=== PATIENT | female | born 2000 | race African-American/Black ===

== ENCOUNTER 2024-01-11 21:02 | Observation (INO) | payer OTHER, SELFPAY ==
[2024-01-11] VITALS (12 sets, daily range): BP systolic 134; BP diastolic 78; PULSE 87–103; TEMP 36.8; O2SAT 98–100; BMI 38.8
[2024-01-11 22:44] LABS: Appearance Urine Cloudy (Clear); Bacteria Urine 3+ /hpf; Bilirubin Urine Negative (Negative); Blood Urine Negative (Negative); Color Urine Dark Yellow (Yellow); Glucose Urine UA Negative (Negative); Ketones Urine 2+ mg/dL (Negative); Leukocyte Esterase Ur Negative LEU/UL (Negative); Nitrate Urine Negative (Negative); Non Pathogenic Casts 0-2; Protein Urine 1+ mg/dL (Negative); RBC Urine 0-2 /hpf (0-2); Squamous Epithelial Cell Urine Moderate /hpf (Few); WBC Urine 0-5 /hpf (0-3)
[2024-01-11 23:02] LABS: Add Urine Microscopic? YES; Specific Grav Ur 1.032 (1.001-1.035)
--- NOTE | 2024-02-10 21:01 | P.PNOB_ITS ---
OB - Triage/Final Diagnosis Visit Information Comments/Additional reasons for admission: I have assessed the risk for this patient, Dory Goddard, and determined that she would benefit from observation care. Evaluation Laboratory results: Laboratory Tests 01/11/24 22:35 Urine Color Dark yellow Urine Appearance Cloudy H Urine pH 6.0 Ur Specific [place] 1.032 Urine Protein 1+ H Urine Glucose (UA) Negative Urine Ketones 2+ H Ur Blood (Man) Negative Urine Nitrate Negative Urine Bilirubin Negative Urine Urobilinogen 1.0 Leukocyte Esterase Rfl Negative Urine RBC 0-2 Urine WBC 0-5 Ur Squamous Epith Cells Moderate Urine Bacteria 3+ H Urine Casts 0-2 Final Diagnosis (1) Abdominal pain: Code(s): R10.9 - Unspecified abdominal pain Status: Acute
== END 2024-01-11 23:20 | disposition home or self-care (01) ==
LOC: ANHED 21:28 → ANHOBPP 21:29 → ANHED 21:30 → ANHOBPP 21:30
PROVIDERS: Admitting Provider Obstetrics & Gynecology; Emergency Provider Advanced Practice Midwife; Visit Provider Obstetrics & Gynecology
DX: O26.899 Other specified pregnancy related conditions, unspecified trimester (principal); R10.30 Lower abdominal pain, unspecified
CPT/HCPCS: 81001; G0378; G0379

== ENCOUNTER 2024-01-31 19:40 | Observation (INO) | payer OTHER, SELFPAY ==
[2024-01-31 19:57] VITALS: BP 151/105; PULSE 135
[2024-01-31 20:00] VITALS: BP 143/118; PULSE 158
[2024-01-31 20:29] VITALS: BP 109/61; PULSE 98
[2024-01-31 20:31] VITALS: BP 80/24; PULSE 163
[2024-01-31 20:33] VITALS: BMI 41.4
--- NOTE | 2024-01-31 20:37 | OBADM ---
This patient, Dory Goddard, admitted to the OB room OB Post 116 for observation. Patient/family oriented to hospital policies and general routines including ID bracelet, bed and alarms, visiting hours, pain management, procedures, bathroom and other care routines, personal items, smoking policy, room service/diet, and visiting hours. Patient/Family are encouraged to report perceived risks to care and to ask questions if they do not understand what they are told or what they should do.
[2024-01-31 21:00] VITALS: BP 119/53; PULSE 89
[2024-01-31 21:00] LABS: Bacteria Urine Rare /hpf; Non Pathogenic Casts 0-2; RBC Urine 0-2 /hpf (0-2); Squamous Epithelial Cell Urine Occasional /hpf (Few); WBC Urine 0-5 /hpf (0-3)
[2024-01-31 21:11] LABS: Add Urine Microscopic? YES; Appearance Urine Clear (Clear); Bilirubin Urine Negative (Negative); Blood Urine Negative (Negative); Color Urine Yellow (Yellow); Glucose Urine UA Negative (Negative); Ketones Urine 3+ mg/dL (Negative); Leukocyte Esterase Ur Negative LEU/UL (Negative); Nitrate Urine Negative (Negative); Protein Urine Trace mg/dL (Negative); Specific Grav Ur 1.027 (1.001-1.035); pH Urine 6.5 (5.0-9.0)
--- NOTE | 2024-01-31 21:19 | PC.NURSE ---
2118: Dr. Baig called and given report on pt, FHT and urine results. Report given that pt has not had a BM in [address] Baig gave orders for PO hydration, 500 mg of tylenol and to instruct the patient to take Milk of Magnesia 2-3x/day. She may be discharged home.
--- NOTE | 2024-03-02 21:15 | PM.OBTRLD ---
OB - Triage/Final Diagnosis Visit Information Comments/Additional reasons for admission: I have assessed the risk for this patient, Dory oGddard, and determined that she would benefit from observation care. Evaluation Laboratory results: Laboratory Tests 01/31/24 20:43 Urine Color Yellow Urine Appearance Clear Urine pH 6.5 Ur Specific [place] 1.027 Urine Protein Trace Urine Glucose (UA) Negative Urine Ketones 3+ H Ur Blood (Man) Negative Urine Nitrate Negative Urine Bilirubin Negative Urine Urobilinogen 1.0 Leukocyte Esterase Rfl Negative Urine RBC 0-2 Urine WBC 0-5 Ur Squamous Epith Cells Occasional Urine Bacteria Rare Urine Casts 0-2 Final Diagnosis (1) Constipation: Code(s): K59.00 - Constipation, unspecified Status: Acute
== END 2024-01-31 22:08 ==
PROVIDERS: Admitting Provider Obstetrics & Gynecology; Visit Provider Obstetrics & Gynecology
DX: O26.899 Other specified pregnancy related conditions, unspecified trimester (principal); R10.9 Unspecified abdominal pain; K59.00 Constipation, unspecified
CPT/HCPCS: 81001; G0378; G0379

== ENCOUNTER 2024-04-23 15:33 | Outpatient (RCR) | payer OTHER, SELFPAY ==
--- NOTE | ~2024-04-23 | US_ITS ---
EXAMINATION: US OB limited w BPP DATE: 04/23/2024 17:22 INDICATION: Nonreactive nonstress test. Third trimester. TECHNIQUE: Real-time pelvic ultrasound was performed. COMPARISON: None. FINDINGS: There is a single living fetus in vertex presentation. The placenta is posterior. heart rate i s 141 beats per minute (bpm). The cervical length is 2.7 cm on transabdominal images, which is normal . The amniotic fluid index is 9.1 cm which is normal. Biophysical profile performed by the technologist: breathing (30 sec sustained breathing in 30 minutes): 2 out of 2 movement (3 gross body movements in 30 minutes): 2 out of 2 tone (one episode of eodttiy-frdyeafxi-wrikyhq limb movement): 2 out of 2 Amniotic fluid pocket (2 cm): 2 out of 2 Total score: 8 out of 8 IMPRESSION: 1. Single living fetus in vertex presentation. 2. Biophysical profile 8 out of 8. Reviewed, dictated and finalized at location A.
[2024-04-23 16:21] VITALS: BP 128/76; PULSE 85
--- NOTE | 2024-04-23 17:24 | PC.NURSE ---
Nicole Urbina CNM notified of NST and ultrasound results
== END 2024-05-26 09:52 | disposition home or self-care (01) ==
LOC: ANHOBOP 15:33
PROVIDERS: Visit Provider Advanced Practice Midwife
DX: O26.893 Other specified pregnancy related conditions, third trimester (principal)
CPT/HCPCS: 59025; 76815; 76819

== ENCOUNTER 2024-04-30 15:00 | Inpatient (IN) | payer OTHER, SELFPAY ==
[2024-04-30] VITALS (71 sets, daily range): BP systolic 68–136; BP diastolic 22–98; PULSE 50–183; TEMP 36.2–36.5; O2SAT 62–100; BMI 41.5
[2024-04-30 15:55] LABS: Basophils Percent Auto 0.3 % (0.2-1.2); Eosinophils Absolute Auto 0.1 K/mm3 (0-0.3); Eosinophils Percent Auto 0.7 % (0-4.4); Hematocrit 35.5 % (37.0-47.0); Hemoglobin 11.4 g/dL (12.0-15.0); Immature Granulocyte Absolute 0.03 K/mm3 (0.00-0.031); Immature Granulocyte Percent A 0.3 % (0-0.5); Lymphocytes Absolute Auto 1.08 K/mm3 (0.9-3.2); Lymphocytes Percent Auto 11.8 % (18.3-44.2); Mean Corpuscular HGB Conc 32.1 g/dl (32-36); Mean Corpuscular Hemoglobin 26.2 pg (26-34); Mean Corpuscular Volume 81.6 fl (80-100); Mean Platelet Volume 10.5 fl (7.4-10.4); Monocytes Absolute Auto 0.9 K/mm3 (0.1-0.6); Monocytes Percent Auto 9.7 % (2.6-8.5); Neutrophils Absolute Auto 7.1 K/mm3 (1.3-6.7); Neutrophils Percent Auto 77.2 % (45.5-73.1); Platelet Count Result 309 k/mm3 (150-375); Red Blood Count 4.35 M/mm3 (4.2-5.4); Red Cell Distribution Width 14.5 % (11.5-14.5); White Blood Count 9.2 K/mm3 (4.5-10.0)
--- NOTE | 2024-04-30 16:02 | LDADM ---
This patient, Dory Goddard, was admitted to Labor/Delivery/Recovery 108 on 04/30/24 at 15:00. Plans for labor, pain management and were discussed with patient. Patient/family oriented to hospital policies and general routines including ID bracelet, bed and alarms, visiting hours, pain management, procedures, bathroom and other care routines, personal items, smoking policy, room service/diet and guest tray routines, infant security routines, and visiting hours. Patient/Family are encouraged to report perceived risks to care and to ask questions if they do not understand what they are told or what they should do. See OBIX for further documentation.
--- NOTE | 2024-04-30 16:15 | WPDANESEPP ---
Anes - Eval Pre Procedure Procedure: Labor epidural Date/Time: 04/30/24 16:15 Surgeon: Jovanni Preop Diagnosis: Pain during labor Pre Op Diagnosis: labor Patient Data Age: 23 Gender: F Height: 1.8 m Weight: 135 kg Last Vital Signs Pulse 76 04/30/24 16:03 BP 103/66 04/30/24 16:03 O2 Del Method Room Air 04/30/24 16:01 Allergies Allergy/AdvReac Type Severity Reaction Status Date / Time No Known Allergies Allergy Verified 04/23/24 13:04 Home Medications Medication Instructions Recorded Confirmed Type prenat.vits,isabella,rav-ydsz-rqlyy 1 tablet PO DAILY 04/24/24 04/30/24 History Laboratory Tests 04/30/24 15:47 WBC 9.2 K/mm3 (4.5-10.0) RBC 4.35 M/mm3 (4.2-5.4) Hgb 11.4 L g/dL (12.0-15.0) Hct 35.5 L % (37.0-47.0) MCV 81.6 fl (80-100) MCH 26.2 pg (26-34) MCHC 32.1 g/dl (32-36) RDW 14.5 % (11.5-14.5) Plt Count 309 k/mm3 (150-375) MPV 10.5 H fl (7.4-10.4) Immature Gran % (Auto) 0.3 % (0-0.5) Neut % (Auto) 77.2 H % (45.5-73.1) Lymph % (Auto) 11.8 L % (18.3-44.2) [place] % (Auto) 9.7 H % (2.6-8.5) Eos % (Auto) 0.7 % (0-4.4) Baso % (Auto) 0.3 % (0.2-1.2) Lymph # (Auto) 1.08 K/mm3 (0.9-3.2) [place] # (Auto) 0.9 H K/mm3 (0.1-0.6) Eos # (Auto) 0.1 K/mm3 (0-0.3) Baso # (Auto) 0.0 K/mm3 (0.0-0.1) Abs Immat Gran (auto) 0.03 K/mm3 (0.00-0.031) Absolute Neuts (auto) 7.1 H K/mm3 (1.3-6.7) Absolute Nucleated RBC 0.000 K/mm3 (0.0-0.012) Nucleated RBC % 0.0 % (0.0-0.2) RPR Pending HIV 1&2 Ab/P24 Ag 4thGn Pending Blood Type A Positive Antibody Screen Pending Patient hx anesthesia problems: none Family hx anesthesia problems: none Results Review: All pre-operative results and documents have been reviewed as part of the pre-operative evaluation. [facility] Social History Social History Smoking status: Former smoker Second hand tobacco smoke exposure: Yes Substance use: never Do You Feel Safe in your Home?: Yes Lack of Transportation: No Lack of Food: Never True Current Housing: I Have Housing Concerned About Future Housing: No Difficulty Paying Gas/Electric Bills: No Difficulty Paying for Meds: No Currently Unemployed: No Education: Don't Know Difficulty w/ Childcare or Family Care: No Spiritual care concerns: No Exam Day of Procedure 04/30/24 16:15 Patient weight: obese Heart: regular rate and rhythm Lungs: clear to auscultation Airway: Mallampati scale class II Neurological: alert and oriented
[2024-04-30] MEDS: AMPICILLIN 2 GM/NS 100 ML 2 GM/100 ML BAG IVPB (16:21)
[2024-04-30] MEDS: OXYTOCIN 30 UNITS/NS 500 ML 30 UNITS/500 ML BAG IV CONT (16:21)
[2024-04-30] MEDS: LACTATED RINGERS 1,000 ML 125 ML IV CONT ×2 (16:21→22:50)
[2024-04-30 16:48] LABS: HIV 1/2 Ab P24 Ag Result Negative (Negative)
[2024-04-30 17:01] LABS: Rapid Plasma Reagin Non-Reactive (NonReactive)
--- NOTE | 2024-04-30 18:29 | WPDOBADMIT ---
Obstetrics - Admit Note Admission Note: record reviewed. No pertinent additions to the history and/or any subsequent changes in the physical findings that are not consistent with the expected course of the were found. Additions to the history and/or subsequent changes in the physical findings follow. Admit for SROM, augment with pitocin, IUPC placed, anticipate vaginal delivery
[2024-04-30] MEDS: AMPICILLIN 1 GM/NS 50 ML 1 GM/50 ML BAG IVPB (20:24)
[2024-04-30] MEDS: ONDANSETRON INJ 4 MG/2 ML VIAL IV PUSH (22:13)
[2024-05-01] VITALS (118 sets, daily range): BP systolic 80–165; BP diastolic 31–141; PULSE 25–204; RESP 16–20; TEMP 36.4–37.6; O2SAT 20–100
[2024-05-01] MEDS: LACTATED RINGERS 1,000 ML 125 ML IV CONT ×2 (00:30→09:35)
[2024-05-01] MEDS: AMPICILLIN 1 GM/NS 50 ML 1 GM/50 ML BAG IVPB ×4 (00:30→13:07)
--- NOTE | 2024-05-01 12:10 | PM.OBPNLAB ---
Pain Control Date/time seen: 05/01/24 12:10 Comments: SVE 9.5cm/90/+1, category 1 contractions Q 2
[2024-05-01] MEDS: fentaNYL CITRATE INJ (*CRX) 100 MCG/2 ML VIAL 50 MCG IV PUSH (14:10)
--- NOTE | 2024-05-01 14:15 | PM.OBPRVD ---
OB - Vaginal Delivery Note Procedure Delivery date: 05/01/24 Events: Other (dermoid cyst) Induction method: None Delivery augmentation: Pitocin Delivery monitor: External FHT and Internal Uterine Route of delivery: Episiotomy description: None Laceration Description: None Specimen: No Quantitative Blood Loss (ml): 400 Anesthesia type: Epidural Disposition: Floor Complications: No immediate complications Baby Date of : 05/01/24 Time of : 14:01 Gestational Age by Date: 39 gender: Male Weight (pounds): 7 Weight (ounces): 3 presentation: vertex position: Left Occiput Anterior Placenta delivery description: Spontaneous Cord Vessel Description: 3 Vessels, Nuchal Cord (x2), Reduced and Clamped/Cut score one minute: 9 score five minutes: 9 Narrative: mother and baby in stable condition
[2024-05-01] MEDS: OXYTOCIN 30 UNITS/NS 500 ML 30 UNITS/500 ML BAG 125 UNITS IV CONT (14:27)
[2024-05-01] MEDS: WITCH HAZEL 40 PADS 1 PAD TOPICAL (16:32)
[2024-05-01] MEDS: BENZOCAINE 20% AER SPR (*SP) 56 GM CAN 1 SPRAY TOPICAL (16:32)
--- NOTE | 2024-05-01 16:52 | OBPPTRN ---
Patient transferred to post room #291 via wheelchair. Support person present. Oriented to unit, room, information board, rooming in, admission packet and security measures. Patient verbalizes understanding.
[2024-05-01] MEDS: IBUPROFEN 600 MG TABLET PO (18:25)
[2024-05-02 03:34] LABS: Hematocrit 29.6 % (37.0-47.0); Hemoglobin 9.3 g/dL (12.0-15.0)
[2024-05-02 07:50] VITALS: BP 116/68; PULSE 81; RESP 16; TEMP 36.8; O2SAT 100
--- NOTE | 2024-05-02 08:05 | PM.OBPNVD ---
OB - PN: Subj Subjective Date/time seen: 05/02/24 08:05 Interval history: pp day 1 doing well some leg pain OB - PN: Obj Data Labs 05/02/24 03:23 Labs: Laboratory Results - last 24 hr 05/02/24 03:23 Hgb 9.3 L Hct 29.6 L OB - PN A/P Plan day: 1 Plan: routine care Time Spent With Patient Time: Total time spent is greater than 50% in coordination of care (as documented) at patient's floor/unit and/or counseling patient: Review of Systems Review of Systems: All systems reviewed & are unremarkable except as noted in HPI and below Exam Const: General: cooperative and healthy appearing Resp: Effort & Inspection: normal respiratory effort Cardio: Rate: regular rate GI: Other: soft Neuro: General: patient oriented x3 Extrem: General: normal to inspection Psych: Appearance: grossly normal
[2024-05-02] MEDS: CYCLOBENZAPRINE HCL 5 MG TABLET PO ×2 (08:37→22:00)
[2024-05-02] MEDS: POLYSACCHARIDE IRON COMPLEX 150 MG CAPSULE PO ×2 (08:37→17:40)
[2024-05-02] MEDS: DOCUSATE SODIUM 100 MG CAPSULE PO ×2 (08:37→17:40)
--- NOTE | 2024-05-02 10:52 | WPDANLDPN2 ---
Anes-Prog Note L&D Date/Time: 05/02/24 10:52 Comfortable throughout: labor and delivery Neuraxial method: epidural Epidural/Spinal procedure site: clean & non-tender Neuro status: Neuro function grossly intact. Cardiovascular status: normal Respiratory status: normal Airway patency: baseline Mental status: baseline Post-Op hydration status: normal Vital Signs: Last Vital Signs Temp 36.8 C 05/02/24 07:50 Pulse 81 05/02/24 07:50 Resp 16 05/02/24 07:50 BP 116/68 05/02/24 07:50 Pulse Ox 100 05/02/24 07:50 O2 Del Method Room Air 05/01/24 19:49 Pain score (VAS): 2/10 I/O: Intake & Output 05/01/24 05/02/24 05/02/24 23:59 07:59 15:59 Output Total 100 Balance -100 Post-procedural complaints: none Patient feedback: Patient satisfied with anesthetic care.
[2024-05-02 12:51] VITALS: BP 118/68; PULSE 97; RESP 18; TEMP 36.8; O2SAT 100
[2024-05-02 19:37] VITALS: BP 131/52; PULSE 102; RESP 20; TEMP 36.8; O2SAT 98
[2024-05-03] MEDS: CYCLOBENZAPRINE HCL 5 MG TABLET PO (05:00)
--- NOTE | 2024-05-03 07:11 | PM.OBPNVD ---
OB - PN: Subj Subjective Date/time seen: 05/03/24 07:11 Interval history: pp day 2 doing well desires d/c home OB - PN: Obj Data Labs 05/02/24 03:23 OB - PN A/P Plan day: 2 Plan: routine care and discharge home Time Spent With Patient Time: Total time spent is greater than 50% in coordination of care (as documented) at patient's floor/unit and/or counseling patient: Review of Systems Review of Systems: All systems reviewed & are unremarkable except as noted in HPI and below Exam Const: General: cooperative and healthy appearing Chest: Chest palpation & inspection: normal inspection of the chest Cardio: Rate: regular rate
[2024-05-03] MEDS: POLYSACCHARIDE IRON COMPLEX 150 MG CAPSULE PO (07:12)
[2024-05-03] MEDS: DOCUSATE SODIUM 100 MG CAPSULE PO (07:12)
--- NOTE | 2024-05-03 07:12 | P.DS_ITS ---
DS: Admitting Diagnosis Discharge Date 05/03/24 Admitting Diagnosis SROM DS: Discharge Diagnosis Discharge Diagnosis (1) Vaginal delivery: Code(s): O80 - Encounter for full-term uncomplicated delivery Status: Acute OB - DS: Summary OB Procedures : None OB Procedures Intrapartum: Spontaneous Vag Delivery OB Procedures: : None Peripartum Data Laceration Description: None Episiotomy description: None Time Spent with Patient Time attestation: Total time spent providing and/or coordinating discharge services: Discharge Plan Discharge Attending physician on discharge: Amari Baig Discharging Clinician: Loan Urbina Patient Disposition: Home, Self-Care Activity: pelvic rest Diet: regular Patient Instructions: Antibiotic Form Stand Alone Forms: General Discharge Information Follow-up/Referrals: Loan Urbina CNM [Certified Nurse Facilities Coordinator] - 4 Weeks Discharge Medications: Continued #2 Tablet 1 tablet PO DAILY Date of admission: 04/30/24 15:00 Primary Care Provider: PHYSICIAN,AUTOMOBILE BODY REPAIR CHIEF Admitting Provider: Amari Baig Attending physician on admission: Amari Baig Condition: Stable
[2024-05-03 07:15] VITALS: BP 98/53; PULSE 65; RESP 16; TEMP 36.6; O2SAT 100
[2024-05-05 10:48] VITALS: BP 115/67; PULSE 72; RESP 20; TEMP 36.4; O2SAT 100
== END 2024-05-03 11:05 | disposition home or self-care (01) | DRG 560 ==
LOC: ANHLDR 15:29 → ANHOB2 05-01 17:08
PROVIDERS: Advanced Practice Midwife; Admitting Provider Obstetrics & Gynecology; Visit Provider Obstetrics & Gynecology
DX: O99.824 Streptococcus B carrier state complicating childbirth (principal); O69.81X0 Labor and delivery complicated by cord around neck, without compression, not applicable or unspecified; Z3A.39 39 weeks gestation of pregnancy; Z37.0 Single live birth
CPT/HCPCS: 36415; 85014; 85018; 85025; 86592; 86703; 86850; 86900; 86901; A9270; G0432; J0290; J2405; J2590; J2795; J3010; J7120

== ENCOUNTER 2025-02-24 07:37 | Emergency (ER) | payer OTHER, SELFPAY ==
[2025-02-24 07:40] VITALS: BP 151/79; PULSE 104; RESP 18; TEMP 36.4; O2SAT 100
--- OUTSIDE RECORDS SUMMARY | 2025-02-24 07:40 | XMS_ITS | Clinical Summary ---
Author Organization [facility] Address [address] [place] [address] Care Team Providers Care Forest Pathology Associate Professor Name Role Phone No, Physician Primary Care Provider [phone] Allergies No known active allergies Medications ondansetron ODT (ZOFRAN-ODT) 4 mg disintegrating tablet Take 1 tablet (4 mg total) by mouth every 8 (eight) hours as needed for nausea or vomiting 20 tablet 4 Active pyridoxine (VITAMIN B6) 25 mg tabletIndications:N ausea Gravidarum Take 2 tablets (50 mg total) by mouth 3 (three) times a day as needed (Nausea and vomiting) for up to 30 doses 30 tablet 4 Active doxylamine (UNISOM) 25 mg tabletIndications:N ausea Gravidarum Take 1 tablet (25 mg total) by mouth 3 (three) times a day as needed for nausea for up to 30 doses 30 tablet 4 Active Social History Tobacco Use Types Packs/Day Years Used Date Smoking Tobacco: Never Assessed Personal Safety Answer Date Recorded Have you ever been in or are you currently in a harmful physical or emotional relationship or is someone making you feel afraid or unsafe? 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 Gender Identity Not on file Sexual Orientation Not on file Obstetrics History Para Term AB IAB SAB Ectopic Multiple Livin g Live Births 1 Date Outcome GA Total Labor Labor/2nd/3rd Weight Sex Type Anes PTL Jeny A1 A5 Name Clin Last Filed Vital Signs Vital Sign Reading Time Taken Comments Blood Pressure 138/75 09/18/2023 8:00 PM STRAP MACHINE OPERATOR Pulse 80 09/18/2023 8:00 PM STRAP MACHINE OPERATOR Temperature 36.8 C (98.2 F) 09/18/2023 4:38 PM STRAP MACHINE OPERATOR Respiratory Rate 17 09/18/2023 4:38 PM STRAP MACHINE OPERATOR Oxygen Saturation 98% 09/18/2023 8:00 PM STRAP MACHINE OPERATOR Inhaled Oxygen Concentration - - Weight 127 kg (280 lb) 09/18/2023 12:49 PM STRAP MACHINE OPERATOR Height 182.9 cm (6') 09/18/2023 12:49 PM STRAP MACHINE OPERATOR Body Mass Index 37.97 09/18/2023 12:49 PM STRAP MACHINE OPERATOR Plan of Treatment Health Maintenance Due Date Last Done Comments Cervical Cancer Screening 1999 Depression Screening 1999 Hepatitis C Screening 1999 Regular Well Visit/Exam 18-64 2017 DTaP/Tdap/Td Vaccine (7 - Td or Tdap) 03/09/2021 03/09/2011, 03/15/2004, 09/28/2000, Additional history exists Influenza Vaccine (#1) 2025 05/03/2017 Hepatitis B Screening Completed 01/02/2000 , 1999, 1999 Varicella Vaccines Completed 11/07/2007, 07/02/2000 HPV Vaccines Completed 08/28/2013, 03/09/2011 Pneumococcal vaccine <65 Aged Out 08/28/2013, 06/22 No longer eligible based on patient's age to complete this topic Insurance [facility] Care Teams Forest Pathology Associate Professor Relationship Specialty Start Date End Date No, Physician PCP - General 09/18/23
--- OUTSIDE RECORDS SUMMARY | 2025-02-24 07:40 | XMS_ITS | Clinical Summary ---
Author Organization [facility] Address [address] [place] [address] Care Team Providers Care Service Engine Repairer Name Role Phone Unavailable Primary Care Provider Unavailabl e Source Comments [facility],non-owned Affiliates and Associated Physician Practices is amultiple site organization consisting of ambulatory clinics and hospital sitesin [place], [place], [place] and [place]. This disclosure is being madepursuant to the Care Everywhere program and may not contain all information available regarding this patient. Last updated 18.[facility] Allergies No known active allergies Medications * Be aware that medications may not be up to date on this document. Alwaysverify current medications with the patient. Vit-DSS-Fe Fum-FA ( vitamin with iron) tablet Take 1 (one) tablet by mouth once daily Active Social History Tobacco Use Types Packs/Day Years Used Date Smoking Tobacco: Never Smokeless Tobacco: Never Alcohol Use Standard Drinks/Week Comments Not Currently 0 (1 standard drink = 0.6 oz pur e alcohol) Comments No Sex and Gender Information Value Date Recorded Sex Assigned at Not on file Legal Sex Female 5:39 AM PRODUCTION ASSEMBLY OPERATOR Gender Identity Not on file Sexual Orientation Not on file Last Filed Vital Signs Vital Sign Reading Time Taken Comments Blood Pressure 110/75 04/02/2024 1:53 PM CDT Pulse 108 04/02/2024 1:53 PM CDT Temperature - - Respiratory Rate - - Oxygen Saturation - - Inhaled Oxygen Concentration - - Weight 130.9 kg (288 lb 9.6 oz) 04/02/2024 1:53 PM CDT Height 182.9 cm (6') 04/02/2024 1:53 PM CDT Body Mass Index 39.14 04/02/2024 1:53 PM CDT Plan of Treatment Health Maintenance Due Date Last Done Comments HPV VACCINE (1 - 3-dose series) 2014 CHLAMYDIA/GONORRHEA SCREENING 2015 HEPATITIS C SCREENING 06/24/2017 DTAP/TDAP/TD VACCINES (1 - Tdap) 2018 HEPATITIS B VACCINE (1 of 3 - 19+ 3-dose series) 2018 PAP SMEAR 2020 COVID-19 VACCINE (1 - 2023-2 5 season) 2024 DEPRESSION SCREENING 07/23/2024 INFLUENZA VACCINE (#1) 2025 05/03/2017 ZOSTER VACCINE (1 of 2) 2049 HIV SCREENING Completed 02/13/2024 HIB VACCINE Aged Out No longer eligi ble based on patient's age to complete this topic MENINGOCOCCAL (Group B) VACC INE SHARED DECISION-MAKING Aged Out No longer eligibl e based on patient's age to complete this topic MENINGOCOCCAL GROUPS A/C/Y/W VACCINE Aged Out No longer eligible b ased on patient's age to complete this topic PNEUMOCOCCAL VACCINE Aged Out No long er eligible based on patient's age to complete this topic Insurance [facility]
--- OUTSIDE RECORDS SUMMARY | 2025-02-24 07:40 | XMS_ITS | Referral Summary ---
Author Organization [facility] Address [address] [place] [address] Care Team Providers Care Cell Room Operator Name Role Phone No, Physician Primary Care Provider [phone] Allergies No known active allergies Medications ondansetron [...] on file Legal Sex Female 12:48 PM JAWBONE PULLER Gender Identity Not on file Sexual Orientation Not on file Last Filed Vital Signs Vital Sign Reading Time Taken Comments Blood Pressure 138/75 09/18/2023 8:00 PM JAWBONE PULLER Pulse 80 09/18/2023 8:00 PM JAWBONE PULLER Temperature 36.8 C (98.2 F) 09/18/2023 4:38 PM JAWBONE PULLER Respiratory Rate 17 09/18/2023 4:38 PM JAWBONE PULLER Oxygen Saturation 98% 09/18/2023 8:00 PM JAWBONE PULLER Inhaled Oxygen Concentration - - Weight 127 kg (280 lb) 09/18/2023 12:49 PM JAWBONE PULLER Height 182.9 cm (6') 09/18/2023 12:49 PM JAWBONE PULLER Body Mass Index 37.97 09/18/2023 12:49 PM JAWBONE PULLER Plan of Treatment Not on file Insurance [facility] Care Teams Cell Room Operator Relationship Specialty Start Date End Date No, Physician PCP - General 09/18/23
[2025-02-24 09:01] VITALS: BP 120/64; PULSE 83; RESP 11; O2SAT 100
--- OUTSIDE RECORDS SUMMARY | 2025-02-24 09:12 | XMS_ITS | Clinical Summary ---
Author Organization [facility] Address [address] [place] [address] Care Team Providers Care Cutting Torch Operator Name Role Phone Unavailable Primary Care Provider Unavailabl e Source Comments [facility],non-owned Affiliates and Associated Physician Practices is amultiple site organization consisting of ambulatory clinics and hospital sitesin [place], [place]. This disclosure is being madepursuant to the Care Everywhere program and may not contain all information available regarding this patient. 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
--- OUTSIDE RECORDS SUMMARY | 2025-02-24 09:12 | XMS_ITS | Clinical Summary ---
Author Organization [facility] Address [address] [place] [address] Care Team Providers Care Butter Grader Name Role Phone No, Physician Primary Care Provider [phone] Allergies No known active allergies Medications ondansetron [...] on file Legal Sex Female 12:48 PM TRUCK RENTAL CLERK Gender Identity Not on file Sexual Orientation Not on file Obstetrics History Para Term AB IAB SAB Ectopic Multiple Livin g Live Births 1 Date Outcome GA Total Labor Labor/2nd/3rd Weight Sex Type Anes PTL Jeny A1 A5 Name Clin Last Filed Vital Signs Vital Sign Reading Time Taken Comments Blood Pressure 138/75 09/18/2023 8:00 PM TRUCK RENTAL CLERK Pulse 80 09/18/2023 8:00 PM TRUCK RENTAL CLERK Temperature 36.8 C (98.2 F) 09/18/2023 4:38 PM TRUCK RENTAL CLERK Respiratory Rate 17 09/18/2023 4:38 PM TRUCK RENTAL CLERK Oxygen Saturation 98% 09/18/2023 8:00 PM TRUCK RENTAL CLERK Inhaled Oxygen Concentration - - Weight 127 kg (280 lb) 09/18/2023 12:49 PM TRUCK RENTAL CLERK Height 182.9 cm (6') 09/18/2023 12:49 PM TRUCK RENTAL CLERK Body Mass Index 37.97 09/18/2023 12:49 PM TRUCK RENTAL CLERK Plan of Treatment Health Maintenance Due Date [...] patient's age to complete this topic Insurance [facility] Care Teams Butter Grader Relationship Specialty Start Date End Date No, Physician PCP - General 09/18/23
--- OUTSIDE RECORDS SUMMARY | 2025-02-24 09:12 | XMS_ITS | Referral Summary ---
Author Organization [facility] Address [address] [place] [address] Care Team Providers Care Cashier Tube Room Name Role Phone No, Physician Primary Care Provider [phone] Allergies No known active allergies Medications ondansetron [...] on file Legal Sex Female 12:48 PM NEWSPAPER PHOTOGRAPHER Gender Identity Not on file Sexual Orientation Not on file Last Filed Vital Signs Vital Sign Reading Time Taken Comments Blood Pressure 138/75 09/18/2023 8:00 PM NEWSPAPER PHOTOGRAPHER Pulse 80 09/18/2023 8:00 PM NEWSPAPER PHOTOGRAPHER Temperature 36.8 C (98.2 F) 09/18/2023 4:38 PM NEWSPAPER PHOTOGRAPHER Respiratory Rate 17 09/18/2023 4:38 PM NEWSPAPER PHOTOGRAPHER Oxygen Saturation 98% 09/18/2023 8:00 PM NEWSPAPER PHOTOGRAPHER Inhaled Oxygen Concentration - - Weight 127 kg (280 lb) 09/18/2023 12:49 PM NEWSPAPER PHOTOGRAPHER Height 182.9 cm (6') 09/18/2023 12:49 PM NEWSPAPER PHOTOGRAPHER Body Mass Index 37.97 09/18/2023 12:49 PM NEWSPAPER PHOTOGRAPHER Plan of Treatment Not on file Insurance [facility] Care Teams Cashier Tube Room Relationship Specialty Start Date End Date No, Physician PCP - General 09/18/23
[2025-02-24 09:16] VITALS: BP 128/67; PULSE 86; RESP 16; O2SAT 100
[2025-02-24 09:45] VITALS: BP 130/76; PULSE 92; RESP 15; O2SAT 100
[2025-02-24 10:01] VITALS: BP 134/69; PULSE 82; RESP 13; O2SAT 100
[2025-02-24 10:15] VITALS: BP 134/72; PULSE 87; RESP 10; O2SAT 100
[2025-02-24 10:17] LABS: Hematocrit 25.7 % (37.0-47.0); Hemoglobin 7.7 g/dL (12.0-15.0); Immature Granulocyte Percent A 0.1 % (0-0.5); Lymphocytes Absolute Auto 1.65 K/mm3 (0.9-3.2); Mean Corpuscular HGB Conc 30.0 g/dl (32-36); Mean Corpuscular Hemoglobin 25.0 pg (26-34); Mean Corpuscular Volume 83.4 fl (80-100); Nucleated Red Blood Cells Absolute Auto 0.000 K/mm3 (0.0-0.012); Nucleated Red Blood Cells Perc 0.0 % (0.0-0.2); Platelet Count Result 336 k/mm3 (150-375); Red Blood Count 3.08 M/mm3 (4.2-5.4); White Blood Count 6.9 K/mm3 (4.5-10.0)
[2025-02-24 10:39] LABS: Alanine Aminotransferase 14 U/L (6-35); Albumin Level 3.9 g/dL (3.5-5.1); Alkaline Phosphatase 57 U/L (38-126); Anion Gap 8 mmol/L (4-12); Aspartate Amino Transferase 21 U/L (14-36); Bilirubin,Total 0.3 mg/dL (0.2-1.3); Blood Urea Nitrogen 13 mg/dL (7-17); Calcium 9.2 mg/dL (8.4-10.2); Carbon Dioxide 26 mmol/L (22-30); Chloride 106 mmol/L (98-107); Estimated CRCL calculation 145 ml/min; Estimated Glomerular Filt Rate > 60; Glucose 103 mg/dL (65-110); Potassium 3.6 mmol/L (3.4-5.0); Sodium 140 mmol/L (137-145); Total Protein 6.7 g/dL (6.3-8.2)
--- NOTE | 2025-02-24 10:58 | ED_ITS ---
HPI - Headache General Chief Complaint: Headache Stated Complaint: [place], dizzy, x4days Time Seen by Provider: 02/24/25 08:43 Source: patient Mode of arrival: ambulatory Limitations: no limitations History of Present Illness HPI Narrative: [age] old otherwise healthy here with a complains of having frontal headache on and off for past 4 days. She denies any trauma no history of fever chills. MD elicited complaint: headache Onset (ago): day(s) (4) Onset description: gradually Location: frontal Severity: mild Quality & Timing: aching Exacerbating factors: none Relieving factors: nothing Related Data Allergies Allergy/AdvReac Type Severity Reaction Status Date / Time No Known Allergies Allergy Verified 02/24/25 08:46 Review of Systems 2 Review of Systems: All systems reviewed & are unremarkable except as noted in HPI and below Constitutional: Constitutional: Reports no additional constitutional complaints Eyes: Eyes: Reports no additional eye complaints ENT: Reports system reviewed and no additional complaints, except as documented Cardiovascular: Cardiovascular: Reports no additional cardiovascular complaints Respiratory: Respiratory: Reports no additional respiratory complaints Gastrointestinal: Gastrointestinal: Reports no additional gastrointestinal complaints Musculoskeletal: Musculoskeletal: Reports no additional musculoskeletal complaints Neurologic: Reports as per HPI [facility] Social History Social History Smoking status: Former smoker Second hand tobacco smoke exposure: Yes Substance use: never Do You Feel Safe in your Home?: Yes Lack of Transportation: No Lack of Food: Never True Current Housing: I Have Housing Concerned About Future Housing: No Difficulty Paying Gas/Electric Bills: No Difficulty Paying for Meds: No Currently Unemployed: No Education: Don't Know Difficulty w/ Childcare or Family Care: No Spiritual care concerns: No Exam 2 Narrative: GENERAL: Well-appearing, obese, and in no acute distress. HEAD: Normocephalic, atraumatic. EYES: PERRLA and EOMI. ENT: Nares clear, no rhinorrhea or epistaxis. Mucous membranes moist. NECK: Supple. CHEST: Clear to auscultation. No respiratory distress. HEART: Regular rate and rhythm. No murmur heard. Normal peripheral pulses. ABDOMEN: Soft, nontender, nondistended, normal active bowel sounds. EXTREMITIES: Normal range of motion. No edema. SKIN: Warm, dry, no rash. NEURO: No focal deficits. Alert and oriented x3. PSYCH: Normal mood and affect. Course Course Emergency Course: Informed patient about her lab work. Patient is unaware of that she being any make. She has not seen a doctor for quite some time. Patient states that she has recently had miscarriage and had heavy vaginal bleeding. Advised her to take vitamins daily. Follow with her primary doctor or on-call doctor. I did order iron studies Vital Signs Vital signs: Vital Signs Temperature 36.4 C 02/24/25 07:40 Pulse Rate 104 H 02/24/25 07:40 Respiratory Rate 18 02/24/25 07:40 Blood Pressure 151/79 H 02/24/25 07:40 Pulse Oximetry 100 02/24/25 07:40 Temperature 36.4 C 02/24/25 07:40 Pulse Rate 87 02/24/25 10:15 Respiratory Rate 10 L 02/24/25 10:15 Blood Pressure 134/72 02/24/25 10:15 Pulse Oximetry 100 02/24/25 10:15 MDM - Headache Lab Data 02/24/25 10:09 02/24/25 10:09 Labs: Lab Results 02/24/25 Range/Units 10:09 WBC 6.9 (4.5-10.0) K/mm3 RBC 3.08 L (4.2-5.4) M/mm3 Hgb 7.7 L (12.0-15.0) g/dL Hct 25.7 L (37.0-47.0) % MCV 83.4 (80-100) fl MCH 25.0 L (26-34) pg MCHC 30.0 L (32-36) g/dl RDW 14.6 H (11.5-14.5) % Plt Count 336 (150-375) k/mm3 MPV 9.7 (7.4-10.4) fl Immature Gran % (Auto) 0.1 (0-0.5) % Neut % (Auto) 64.2 (45.5-73.1) % Lymph % (Auto) 24.0 (18.3-44.2) % [place] % (Auto) 9.5 H (2.6-8.5) % Eos % (Auto) 1.6 (0-4.4) % Baso % (Auto) 0.6 (0.2-1.2) % Lymph # (Auto) 1.65 (0.9-3.2) K/mm3 [place] # (Auto) 0.7 H (0.1-0.6) K/mm3 Eos # (Auto) 0.1 (0-0.3) K/mm3 Baso # (Auto) 0.0 (0.0-0.1) K/mm3 Abs Immat Gran (auto) 0.01 (0.00-0.031) K/mm3 Absolute Neuts (auto) 4.4 (1.3-6.7) K/mm3 Absolute Nucleated RBC 0.000 (0.0-0.012) K/mm3 Nucleated RBC % 0.0 (0.0-0.2) % Sodium 140 (137-145) mmol/L Potassium 3.6 (3.4-5.0) mmol/L Chloride 106 (98-107) mmol/L Carbon Dioxide 26 (22-30) mmol/L Anion Gap 8 (4-12) mmol/L BUN 13 (7-17) mg/dL Creatinine 0.78 (0.7-1.0) mg/dL Estim Creat Clear Calc 145 ml/min Estimated GFR > 60 (59 - ) Glucose 103 (65-110) mg/dL Calcium 9.2 (8.4-10.2) mg/dL Iron Pending TIBC Pending % Saturation Pending Total Bilirubin 0.3 (0.2-1.3) mg/dL AST 21 (14-36) U/L ALT 14 (6-35) U/L Alkaline Phosphatase 57 (38-126) U/L Total Protein 6.7 (6.3-8.2) g/dL Albumin 3.9 (3.5-5.1) g/dL Discharge Plan Discharge Clinical Impression: Headache Qualifiers: Headache type: unspecified Headache chronicity pattern: episodic headache I ntractability: intractable Qualified Code(s): R51.9 - Headache, unspecified Anemia Qualifiers: Anemia type: iron deficiency Iron deficiency anemia type: unspecified iron deficiency Qualified Code(s): D50.9 - Iron deficiency anemia, unspecified Patient Disposition: Home Condition: Stable Instructions: Acute Headache (ED), Anemia (ED) Additional Instructions: Take of medication as prescribed. Follow-up with your primary doctor on June given below. Recheck your hemoglobin levels in 1 month. Patient Language: Albanian Prescriptions: New Classic 28 mg iron- 800 mcg tablet 1 tablet PO DAILY Qty: 30 0RF Follow-up/Referrals: Loan Urbina CNM [Primary Care Provider] - Nathan Vu MD [Physician] -
[2025-02-24 11:11] LABS: Iron 19 ug/dL (37-170)
[2025-02-24 11:22] LABS: Percent Iron Saturation 5 % (20-50)
== END 2025-02-24 11:00 | disposition home or self-care (01) ==
PROVIDERS: Emergency Provider Family Medicine; PCP Advanced Practice Midwife
DX: R51.9 Headache, unspecified (principal); D50.9 Iron deficiency anemia, unspecified; Z87.891 Personal history of nicotine dependence
CPT/HCPCS: 36415; 80053; 83540; 83550; 85025; 99283